=== PATIENT | male | born 1960 | race Caucasian/White ===

== ENCOUNTER 2022-08-21 10:30 | Day surgery (SDC) | payer BC ==
[~2022-08-21] VITALS: Ht 175.3 cm; Wt 100.9 kg
[~2022-08-21 10:30] MED LIST: ALLO300 PO; ASPI81CH PO; BASAGLAR K100 UNIT/1 SC; GLIM4 PO; Lisinopril2.5 MG PO; METF500 PO; PRAV20 PO
[2022-08-21 11:01] VITALS: BP 135/78
--- NOTE | 2022-08-21 12:49 | NUR ---
08/21/22 1249 Edith Barrientos MONITOR INTACT WITH CONTINUOUS PULSE OXIMETRY, CONTINUOUS END TITAL CO2, AND INTERMITTENT BLOOD PRESSURE.
[2022-08-21 13:18] VITALS: BP 119/69
[2022-08-21 13:31] VITALS: BP 145/85
--- NOTE | 2022-08-21 13:47 | NUR ---
1342- UP TO DRESS. GAIT STEADY. DENIES DIZZINESS. VSS. NO C/O VERBALIZED. Discharge instructions reviewed with patient. Patient verbalizes understanding. Copy given to patient to take home. Patient States Post-Procedure ride home has been arranged with sonDaniel.
== END 2022-08-21 13:48 | disposition home or self-care (01) ==
LOC: ORSCMMR 10:30 → ORD 12:00 → ORSCMMR 13:48
PROVIDERS: Surgery
PROC: 0DJD8ZZ Inspection of Lower Intestinal Tract, Via Natural or Artificial Opening Endoscopic (ICD-10-PCS; principal; 2022-08-21 12:30)
DX: Z12.11 Encounter for screening for malignant neoplasm of colon (principal); K57.30 Diverticulosis of large intestine without perforation or abscess without bleeding; G47.33 Obstructive sleep apnea (adult) (pediatric); E78.5 Hyperlipidemia, unspecified; E11.9 Type 2 diabetes mellitus without complications; Z79.4 Long term (current) use of insulin; Z79.84 Long term (current) use of oral hypoglycemic drugs; Z79.899 Other long term (current) drug therapy
CPT/HCPCS: 82947; J0461; J1610; J2704; J7120